=== PATIENT | male | born 1975 | race Caucasian/White ===

== ENCOUNTER 2016-05-29 11:28 | Emergency (ER) | payer OTHER ==
[2016-05-29 12:05] VITALS: BP 124/78; PULSE 90; RESP 18; TEMP 98.9
--- NOTE | 2016-05-29 12:19 | ED ---
URI HPI - General Chief Complaint: Upper Respiratory Infection Stated Complaint: FEVER X 2 DAYS, CHEST CONGESTION Time Seen by Provider: 05/29/16 12:08 Source: patient, RN notes reviewed Mode of arrival: ambulatory - History of Present Illness Initial Comments: Patient is a 40-year-old male with chief complaint of sinus congestion and headache for approximately 3 days. He reports the occasional has a congested cough as well. Patient states that he has taken Tylenol for his headache. He also states given Robitussin for his ingestion. Patient reports he has a history of asthma. He denies any specific fever or chills. Patient denies any history of sick contacts as well. Patient states that he's had a sore throat from the occasional coughing. Patient reports that he received childhood vaccinations. He denies any neck pain, chest pain, shortness of breath, nausea , vomiting, abdominal pain. - Related Data Previous Rx's Medication Instructions Recorded ALPRAZolam [Xanax] 0.5 mg PO BID PRN #10 tablet 10/01/13 Azithromycin [Zithromax Z-pack] 250 mg PO DIRECTED #6 tab 05/29/16 Fluticasone Nasal [place] [Flonase 1 spray EA NOSTRIL DAILY #1 bottle 05/29/16 Nasal [place]] guaiFENesin [guaiFENesin ER] 1,200 mg PO BID #15 tab.er.12h 05/29/16 Allergies Allergy/AdvReac Type Severity Reaction Status Date / Time acetaminophen [From NyQuil] Allergy Anaphylaxis Verified 05/29/16 12:05 dextromethorphan Allergy Anaphylaxis Verified 05/29/16 12:05 [From NyQuil] doxylamine [From NyQuil] Allergy Anaphylaxis Verified 05/29/16 12:05 pseudoephedrine [From NyQuil] Allergy Anaphylaxis Verified 05/29/16 12:05 Review of Systems ROS Statement: Those systems with pertinent positive or pertinent negative responses have been documented in the HPI. ROS Other: All systems not noted in ROS Statement are negative. Past Medical History Past Medical History: Asthma History of Any Multi-Drug Resistant Organisms: None Reported Past Surgical History: No Surgical Hx Reported Past Psychological History: No Psychological Hx Reported Smoking Status: Never smoker Past Alcohol Use History: Occasional Past Drug Use History: None Reported General Exam - General Exam Comments Initial Comments: Pleasant 40-year-old male. No distress. General appearance: alert, in no apparent distress Head exam: Present: atraumatic, normocephalic, normal inspection Eye exam: Present: normal appearance, PERRL, EOMI. Absent: scleral icterus, conjunctival injection, periorbital swelling ENT exam: Present: normal exam, mucous membranes moist, TM's normal bilaterally , other (Tenderness to sinuses on palpation.). Absent: normal oropharynx ( Slight erythematous tonsils. A few exudates.) Neck exam: Present: normal inspection, full ROM. Absent: tenderness, meningismus (Patient has no meningeal signs.), lymphadenopathy Respiratory exam: Present: normal lung sounds bilaterally. Absent: respiratory distress, wheezes, rales, rhonchi, stridor Cardiovascular Exam: Present: regular rate, normal rhythm, normal heart sounds. Absent: systolic murmur, diastolic murmur, rubs, gallop, clicks GI/Abdominal exam: Present: soft, normal bowel sounds. Absent: distended, tenderness, guarding, rebound, rigid Extremities exam: Present: normal inspection, full ROM, normal capillary refill. Absent: tenderness, pedal edema, joint swelling, calf tenderness Back exam: Present: normal inspection Neurological exam: Present: alert, oriented X3, CN II-XII intact Psychiatric exam: Present: normal affect, normal mood Skin exam: Present: warm, dry, intact, normal color. Absent: rash Course Vital Signs 05/29/16 12:02 Temperature 98.9 F Pulse Rate 90 Respiratory 18 Rate Blood Pressure 124/78 O2 Sat by Pulse 98 Oximetry Medical Decision Making - Medical Decision Making Patient is a 40-year-old male with chief complaint of fever and congestion for approximately 2 days. Patient reports that is a mild sore throat, patient has erythematous oropharynx and significant sinus tenderness to palpation. Patient has no significant cough or wheeze. Patient does not have a fever at this time. Rapid strep is negative. Patient will be discharged with prescription of Flonase, on guanfenicine, and azithromycin. Patient advised to follow-up with ENT specialist symptoms continue persist. Advised to take Motrin Tylenol for the fever and pain. Patient understands treatment plan will comply. - Lab Data Lab Results 05/29/16 Range/Units 12:15 Group A Strep Rapid Negative (Negative) Disposition Clinical Impression: Upper respiratory infection, Sinus headache Disposition: HOME SELF-CARE Condition: Good Instructions: Upper Respiratory Infection (ED) Additional Instructions: Patient is to rest, increase fluids. Follow-up with primary care provider on the next 2-3 days of symptoms and to persist. Prescriptions: Azithromycin [Zithromax Z-pack] 250 mg PO DIRECTED #6 tab Fluticasone Nasal [place] [Flonase Nasal [place]] 1 spray EA NOSTRIL DAILY #1 bottle guaiFENesin [guaiFENesin ER] 1,200 mg PO BID #15 tab.er.12h Referrals: Theresa Michel MD [STAFF PHYSICIAN] - 1-2 days Time of Disposition: 12:48
== END 2016-05-29 13:10 | disposition home or self-care (01) ==
LOC: EC 11:28
DX: J06.9 Acute upper respiratory infection, unspecified (principal); R51 Headache; Z88.8 Allergy status to other drugs, medicaments and biological substances
CPT/HCPCS: 87081; 87430; 99283

== ENCOUNTER 2019-08-11 07:21 | Day surgery (SDC) | payer SELFPAY ==
[2019-08-07 12:46] VITALS: BMI 27.4
[~2019-08-11 07:21] MED LIST: HEPARIN SODIUM,PORCINE 5,000 UNIT/ML 1 ML VIAL SQ ONE; Pre Op ABX Message 1 EACH MISC MISCELLANE ONE
[2019-08-11] MEDS ORDERED: LIDOCAINE 1% (10MG/ML) FOR IV START INTRADERMA ONE (08:35)
[2019-08-11] MEDS ORDERED: LACTATED RINGERS 1,000 ML IV ONE ×2 (08:35→12:23)
[2019-08-11] MEDS ORDERED: ONDANSETRON 4 MG/2 ML VIAL IVP ONE (08:36)
[2019-08-11] MEDS ORDERED: DEXAMETHASONE SOD PHOSPHATE 10 MG/ML 1 ML VIAL IV ONE (08:36)
[2019-08-11] MEDS ORDERED: ALBUTEROL NEBULIZED 2.5 MG/3 ML INHALATION STA (08:49)
[2019-08-11] MEDS ORDERED: ALBUTEROL NEBULIZED 2.5 MG/3 ML INHALATION ONE (09:05)
--- NOTE | 2019-08-11 11:16 | P.GSHP ---
History of Present Illness H&P Date: 08/11/19 Chief Complaint: Right buttock lipoma This a 43-year-old male who presents today for excision of right buttock lipoma. Patient developed a very large lipoma over his right buttock. The lipomas been present for approximately 20 years. It measured approximately 20 cm in kathe meter. Past Medical History Past Medical History: Asthma Additional Past Medical History / Comment(s): ruptured kidney as child -no pr oblems now., lipomas on arm, back of neck and right buttock. History of Any Multi-Drug Resistant Organisms: None Reported Past Surgical History: No Surgical Hx Reported Additional Past Surgical History / Comment(s): benign skin tumor right torso Past Anesthesia/Blood Transfusion Reactions: No Reported Reaction Past Psychological History: Anxiety Smoking Status: Never smoker Past Alcohol Use History: Occasional Past Drug Use History: None Reported - Past Family History Father Family Medical History: Cancer Medications and Allergies Home Medications Medication Instructions Recorded Confirmed Type No Known Home Medications 08/07/19 08/07/19 History Allergies Allergy/AdvReac Type Severity Reaction Status Date / Time acetaminophen [From NyQuil] Allergy Anaphylaxis-Severe Verified 08/07/19 12:38 Asthma attack dextromethorphan Allergy Anaphylaxis- Verified 08/07/19 12:38 [From NyQuil] Severe Asthma attack doxylamine [From NyQuil] Allergy Anaphylaxis- Verified 08/07/19 12:38 Severe Asthma Attack pseudoephedrine [From NyQuil] Allergy Anaphylaxis- Verified 08/07/19 12:38 Severe asthma attack Surgical - Exam Vital Signs Pulse 74 08/11/19 08:58 - General well developed, well nourished, no distress - Eyes PERRL - ENT normal pinna - Neck no masses - Respiratory normal expansion - Cardiovascular Rhythm: regular - Abdomen Abdomen: soft, non tender - Integumentary 2069 lipoma located over her right buttock Assessment and Plan Assessment: Right buttock lipoma. We'll perform excision.
[2019-08-11] MEDS ORDERED: MIDAZOLAM 2 MG/2 ML VIAL ONE (11:36)
[2019-08-11] MEDS ORDERED: LIDOCAINE 1% INJ 10MG/ML (20 ML MDV) ONE (11:36)
[2019-08-11] MEDS ORDERED: PROPOFOL 10 MG/ML 20 ML VIAL IV ONE (11:36)
[2019-08-11] MEDS ORDERED: fentaNYL (PF) 50 MCG/ML 2 ML AMP ONE (11:36)
[2019-08-11] MEDS ORDERED: SUCCINYLCHOLINE CHLORIDE 100 MG/5 ML SYR IV ONE (11:36)
[2019-08-11] MEDS ORDERED: HYDROmorphone (PF) 1 MG/ML ONE (11:36)
[2019-08-11] MEDS ORDERED: SODIUM CHLORIDE 0.9% 50 ML with ceFAZolin 2,000 MG IV ONE ×2 (12:02)
--- NOTE | 2019-08-11 12:50 | P.OP ---
Date of Procedure: 08/11/19 Preoperative Diagnosis: Right buttock lipoma Postoperative Diagnosis: Defer to pathology Procedure(s) Performed: Excision of right buttock lipoma Anesthesia: JENN Surgeon: Jhoan Huerta Estimated Blood Loss (ml): 10 Pathology: other (Right buttock lipoma) Condition: stable Disposition: PACU Description of Procedure: The patient's placed on the operative table lateral position. He received IV sedation. He then received general anesthesia. His right buttock was prepped and draped usual sterile fashion. The lipoma was palpated. A skin incision made over the lipoma. Using left cautery the subcu tissue divided. And then using the Enseal device the lipoma was dissected free. The lipoma appeared to be atypical in appearance. The mass measured approximately 20 cm in diameter. The specimens of pathology. The wound. Hemostasis. Several bleeding points were quite limited. A VIDHYA drains placed: Brought through separate stab incision in the deep layers closed 0 Vicryl. Skin was closed with lizeth. Patient top she will was sent to recovery room stable condition.
[2019-08-11 13:02] VITALS: TEMP 97
[2019-08-11 14:46] VITALS: BP 107/69; PULSE 75; RESP 18
== END 2019-08-11 14:50 | disposition home or self-care (01) ==
LOC: OR 07:21
PROVIDERS: ATTEND Surgery
DX: D17.1 Benign lipomatous neoplasm of skin and subcutaneous tissue of trunk (principal); J45.909 Unspecified asthma, uncomplicated; F41.9 Anxiety disorder, unspecified; Z88.8 Allergy status to other drugs, medicaments and biological substances; Z79.899 Other long term (current) drug therapy; Z80.9 Family history of malignant neoplasm, unspecified
CPT/HCPCS: 94640; 88304; 88342; 88341; 21931; J2250; J1644; J1100; J2405; J0690; J2001; J3010; J1170; J0330; J2704

== ENCOUNTER 2019-08-20 12:41 | Emergency (ER) | payer OTHER ==
[2019-08-20 12:52] VITALS: RESP 18
--- NOTE | 2019-08-20 13:32 | ED ---
Recheck HPI - General Source: patient, RN notes reviewed Mode of arrival: ambulatory Limitations: no limitations <Bashir Finn - Last Filed: 08/20/19 13:29> <Apolinar Chun - Last Filed: 08/20/19 15:34> - General Chief Complaint: Recheck/Abnormal Lab/Rx Stated Complaint: post op/drain tube not draining Time Seen by Provider: 08/20/19 13:03 - History of Present Illness Initial Comments: This is a 43-year-old male presents emergency department for recheck of surgical wound. Patient states he had a mass removed from his right buttocks on [address] Huerta. Patient states that there was a VIDHYA drain in place at this time. Patient states that he follow-up in office because it was not draining they went to pull back and started to out still no drainage in which the 2 was removed at this time. There was some moderate on a blood and pus drained out at this time. He was advised that he continue drain but has not drained and yesterday. Patient denies any increasing pain no fevers or chills. Patient states that the swelling is approximately same size as it was. (Bashir Finn) - Related Data Home Medications Medication Instructions Recorded Confirmed Docusate [Colace] 100 mg PO BID PRN 08/19/19 08/19/19 Previous Rx's Medication Instructions Recorded HYDROcodone/APAP 5-325MG [[place] 1 tab PO Q6HR PRN #10 tab 08/11/19 5-325] Allergies Allergy/AdvReac Type Severity Reaction Status Date / Time acetaminophen [From NyQuil] Allergy Anaphylaxis-Severe Verified 08/20/19 12:42 Asthma attack dextromethorphan Allergy Anaphylaxis- Verified 08/20/19 12:42 [From NyQuil] Severe Asthma attack doxylamine [From NyQuil] Allergy Anaphylaxis- Verified 08/20/19 12:42 Severe Asthma Attack pseudoephedrine [From NyQuil] Allergy Anaphylaxis- Verified 08/20/19 12:42 Severe asthma attack Review of Systems ROS Other: All systems not noted in ROS Statement are negative. <Bashir Finn - Last Filed: 08/20/19 13:29> ROS Other: All systems not noted in ROS Statement are negative. <Apolinar Chun - Last Filed: 08/20/19 15:34> ROS Statement: Those systems with pertinent positive or pertinent negative responses have been documented in the HPI. Past Medical History Past Medical History: Asthma Additional Past Medical History / Comment(s): ruptured kidney as child -no problems now., lipomas on arm, back of neck and right buttock. History of Any Multi-Drug Resistant Organisms: None Reported Past Surgical History: No Surgical Hx Reported Additional Past Surgical History / Comment(s): benign skin tumor right torso Past Anesthesia/Blood Transfusion Reactions: No Reported Reaction Past Psychological History: Anxiety Smoking Status: Never smoker Past Alcohol Use History: Occasional Past Drug Use History: None Reported - Past Family History Father Family Medical History: Cancer <Bashir Finn - Last Filed: 08/20/19 13:29> General Exam Limitations: no limitations General appearance: alert, in no apparent distress Head exam: Present: atraumatic, normocephalic, normal inspection Eye exam: Present: normal appearance, PERRL, EOMI. Absent: scleral icterus, conjunctival injection, periorbital swelling ENT exam: Present: normal exam, normal oropharynx, mucous membranes moist Neck exam: Present: normal inspection, full ROM. Absent: tenderness, meningismus, lymphadenopathy Respiratory exam: Present: normal lung sounds bilaterally. Absent: respiratory distress, wheezes, rales, rhonchi, stridor Cardiovascular Exam: Present: regular rate, normal rhythm, normal heart sounds. Absent: systolic murmur, diastolic murmur, rubs, gallop, clicks Neurological exam: Present: alert Skin exam: Present: warm, dry, intact, normal color, other (Left buttocks areas lizeth in place, ecchymosis, which appears to be old, there is a healing wound were VIDHYA drain was with no increased drainage or erythema noted no significant tenderness.). Absent: rash <Bashir Finn - Last Filed: 08/20/19 13:29> Course Vital Signs 08/20/19 08/20/19 12:43 14:48 Temperature 98.1 F 97.8 F Pulse Rate 93 86 Respiratory 18 18 Rate Blood Pressure 127/88 139/79 O2 Sat by Pulse 96 99 Oximetry Medical Decision Making <Apolinar Chun - Last Filed: 08/20/19 15:34> - Medical Decision Making Dr. Huerta wanted a drain be placed in the wound. I consulted interventional radiology and they did place a drain. Patient has an appointment tomorrow with Dr. Huerta (Apolinar Chun) Disposition <Bashir Finn - Last Filed: 08/20/19 13:29> Is patient prescribed a controlled substance at d/c from ED?: No Time of Disposition: 15:33 <Apolinar Chun - Last Filed: 08/20/19 15:34> Clinical Impression: Drainage from surgical wound Disposition: HOME SELF-CARE Condition: Good Instructions (If sedation given, give patient instructions): Seroma (DC), Wound Healing and Your Diet (ED) Additional Instructions: patient should follow-up with Dr. Huerta tomorrow Referrals: None,Stated [Primary Care Provider] - 1-2 days
--- NOTE | 2019-08-20 14:27 | US ---
EXAMINATION TYPE: US mass soft tissue chest/back DATE OF EXAM: 08/20/2019 COMPARISON: NONE CLINICAL HISTORY: Swelling, assess for possible draining. Swelling noted by EC patient, post left lat eral buttock 6 inch incision for lipoma removal nine days earlier. Complex fluid area is seen medial to surgical incision with lizeth in place, and size of fluid area = 10.0 x 8.3 x 2.8cm. IMPRESSION: Large collection measuring 10 cm could represent a organizing seroma, hematoma or less l ikely abscess.
[2019-08-20 14:53] VITALS: TEMP 97.8
[2019-08-20 16:07] VITALS: BP 118/79; PULSE 78
--- NOTE | 2019-08-22 09:23 | US ---
Ultrasound-guided right gluteal seroma drainage catheter insertion. DATE OF EXAM: 08/20/2019 CLINICAL HISTORY: Suspected postoperative seroma The procedure was discussed with the patient. The risks, complications, benefits, and alternatives we re discussed and any questions were answered. Informed consent was obtained. The patient was placed s upine on the ultrasound table and prepped and draped in the usual sterile fashion. All elements of maximal barrier technique were utilized. Under ultrasound guidance, access into the right gluteal fluid collection was achieved and there is placement of a guidewire. Serial dilation 8 Vietnamese and placement 8 Vietnamese drainage catheter. Repeat imaging demonstrated ideal placement of gaetano ter. Samples obtained and sent to pathology for analysis. All elements of maximal barrier technique a nd sterile technique utilized. The patient was stable throughout the procedure and remained stable up on discharge from Department of Radiology. IMPRESSION: Successful ultrasound guided drainage catheter insertion.
== END 2019-08-20 16:02 | disposition home or self-care (01) ==
LOC: EC 12:41
DX: T81.89XA Other complications of procedures, not elsewhere classified, initial encounter (principal); Z88.6 Allergy status to analgesic agent; Z88.8 Allergy status to other drugs, medicaments and biological substances
CPT/HCPCS: 10030; 76942; 87070; 87075; 87205; 99284

== ENCOUNTER 2019-08-28 14:51 | Day surgery (SDC) | payer SELFPAY ==
[2019-08-29 06:35] VITALS: BP 116/72; PULSE 80; RESP 16; TEMP 98.1
== END 2019-08-28 16:00 | disposition home or self-care (01) ==
LOC: RADPROMAIN 14:51
PROVIDERS: ATTEND Radiology Diagnostic Radiology
DX: Z48.03 Encounter for change or removal of drains (principal)
CPT/HCPCS: 99214

== ENCOUNTER 2019-09-04 15:23 | Day surgery (SDC) | payer SELFPAY ==
[2019-09-04 16:27] VITALS: BP 128/76; PULSE 72; RESP 16; TEMP 98.1
== END 2019-09-04 16:25 | disposition home or self-care (01) ==
LOC: RADPROMAIN 15:23
PROVIDERS: ATTEND Radiology Diagnostic Radiology
DX: Z48.03 Encounter for change or removal of drains (principal)

== ENCOUNTER 2019-09-12 10:47 | Day surgery (SDC) | payer SELFPAY ==
[2019-09-12 11:38] VITALS: BP 133/90; PULSE 75; RESP 14; TEMP 98.2
== END 2019-09-12 11:40 | disposition home or self-care (01) ==
LOC: RADPROMAIN 10:47
PROVIDERS: ATTEND Radiology Diagnostic Radiology
DX: Z48.03 Encounter for change or removal of drains (principal)
CPT/HCPCS: 99213

== ENCOUNTER 2022-01-16 13:53 | Emergency (ER) | payer BC ==
[2022-01-16 14:14] VITALS: TEMP 98.7
--- NOTE | 2022-01-16 16:02 | ED ---
General Adult HPI - General Chief complaint: Upper Respiratory Infection Stated complaint: headache Time Seen by Provider: 01/16/22 15:48 Source: patient, RN notes reviewed Mode of arrival: ambulatory Limitations: no limitations - History of Present Illness Initial comments: Patient is a 46-year-old male presenting to the emergency room with co mplaints of headache and sore throat along with fatigue ongoing for approximately 3 days. He is unsure of fevers and reports that his temperatures are similar to his reading that was obtained in the triage king of a normal temperature. He has not taken any [id number] treatment to treat his symptoms. He states that he was with a coworker who was ill who followed up with urgent care and was tested for Covid and advised him that he had a nasal infection and was Covid negative. He reports occasional shortness of breath secondary to asthma but denies any significant difficulty in breathing at this time. He reports that he received his initial Covid vaccination of [place] when the vaccine first came out but has not received any internal boosters. He denies any other known exposure to RSV or influenza or other viral infections. 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 - Related Data Previous Rx's Medication Instructions Recorded Albuterol Inhaler [Ventolin Hfa 1 - 2 puff INHALATION Q6H PRN 30 01/16/22 Inhaler] Days #1 each Allergies Allergy/AdvReac Type Severity Reaction Status Date / Time acetaminophen [From NyQuil] Allergy Anaphylaxis-Severe Verified 09/12/19 11:48 Asthma attack dextromethorphan Allergy Anaphylaxis- Verified 09/12/19 11:48 [From NyQuil] Severe Asthma attack doxylamine [From NyQuil] Allergy Anaphylaxis- Verified 09/12/19 11:48 Severe Asthma Attack pseudoephedrine [From NyQuil] Allergy Anaphylaxis- Verified 09/12/19 11:48 Severe asthma attack Review of Systems ROS Statement: Those systems with pertinent positive or pertinent negative responses have been documented in the HPI. ROS Other: All systems not noted in ROS Statement are negative. Past Medical History Past Medical History: Asthma Additional Past Medical History / Comment(s): ruptured kidney as child -no problems now., lipomas on arm, back of neck and right buttock. History of Any Multi-Drug Resistant Organisms: None Reported Past Surgical History: No Surgical Hx Reported Additional Past Surgical History / Comment(s): benign skin tumor right torso Past Anesthesia/Blood Transfusion Reactions: No Reported Reaction Past Psychological History: Anxiety Past Alcohol Use History: Occasional Past Drug Use History: None Reported - Past Family History Father Family Medical History: Cancer General Exam Limitations: no limitations General appearance: alert, in no apparent distress Head exam: Present: atraumatic, normocephalic, normal inspection Eye exam: Present: normal appearance, PERRL, EOMI. Absent: scleral icterus, conjunctival injection, periorbital swelling ENT exam: Present: normal exam, mucous membranes moist Neck exam: Present: normal inspection. Absent: lymphadenopathy Respiratory exam: Present: normal lung sounds bilaterally. Absent: respiratory distress, wheezes, rales, rhonchi, stridor Cardiovascular Exam: Present: regular rate, normal rhythm, normal heart sounds. Absent: systolic murmur, diastolic murmur, rubs, gallop, clicks GI/Abdominal exam: Present: soft, normal bowel sounds. Absent: distended, tenderness, guarding, rebound, rigid Extremities exam: Present: normal inspection. Absent: pedal edema, joint swelling Back exam: Present: normal inspection, full ROM Neurological exam: Present: alert, oriented X3, CN II-XII intact Psychiatric exam: Present: normal affect, normal mood Skin exam: Present: other (Multiple fibromas noted.) Course Vital Signs 01/16/22 01/16/22 14:10 17:05 Temperature 98.7 F Pulse Rate 100 80 Respiratory 20 18 Rate Blood Pressure 138/91 132/78 O2 Sat by Pulse 97 98 Oximetry Medical Decision Making - Medical Decision Making 46-year-old male presenting to the emergency room with complaints of headache for 3 days on sore throat for 2 days and occasional difficulty in breathing unchanged over the last 3-4 days with a history of asthma. Lungs clear no hypoxemia or tachypnea. No indication for diagnostic imaging. Cephid swab obtained by triage. Awaiting results. No indication for further laboratory studies. No indication for antibiotic therapy, antipyretics, supplemental oxy gen, steroids or nebulized treatments. Cephid swab positive for COVID, RSV and influenza negative. Discussed treatment for Covid. Paxlovid offered and declined. Requesting a refill of albuterol inhal er, will refill. Will discharge patient home in stable condition to follow quarantining and symptom treatment for COVID. Advised follow-up with primary care provider after quarantining. May utilize Tylenol or ibuprofen as needed for pain. Encouraged use of cough suppressant such as Robitussin as needed for cough. Case discussed with Dr. Jaeger. - Lab Data Lab Results 01/16/22 Range/Units 15:34 Influenza Type A (PCR) Not Detected (Not Detectd) Influenza Type B (PCR) Not Detected (Not Detectd) RSV (PCR) Not Detected (Not Detectd) SARS-CoV-2 (PCR) Detected A (Not Detectd) Disposition Clinical Impression: COVID-19 Disposition: HOME SELF-CARE Additional Instructions: Please quarantine for 5 days after testing positive and restart quarantine if symptoms worsen. Please utilize Tylenol as needed for fevers and pain. Utilize albuterol inhaler for any concurrent asthma symptoms making difficulty in breathing worse. Utilize [id number] Robitussin for cough as needed. Taking vitamin C, Zinc, vitamin D 50 mcg, and melatonin may help symptom recovery. Please follow-up with your primary care provider after your quarantining is complete. Prescriptions: Albuterol Inhaler [Ventolin Hfa Inhaler] 1 - 2 puff INHALATION Q6H PRN 30 Days #1 each PRN Reason: Shortness Of Breath Is patient prescribed a controlled substance at d/c from ED?: No Referrals: Alvino Zhou MD [Primary Care Provider] - 1-2 days Time of Disposition: 17:00
[2022-01-16 17:06] VITALS: BP 132/78; PULSE 80; RESP 18
== END 2022-01-16 17:06 | disposition home or self-care (01) ==
LOC: SUPCPDRO 13:53 → EC 13:53
DX: U07.1 COVID-19 (principal); J45.909 Unspecified asthma, uncomplicated; F41.9 Anxiety disorder, unspecified; Z88.6 Allergy status to analgesic agent; Z88.8 Allergy status to other drugs, medicaments and biological substances; Z88.1 Allergy status to other antibiotic agents; Z79.899 Other long term (current) drug therapy
CPT/HCPCS: 87636; 99284